=== PATIENT | female | born 1995 | race Caucasian/White ===

== ENCOUNTER 2017-02-03 09:55 | Emergency (ER) | payer OTHER | END 2017-02-03 11:25 | disposition home or self-care (01) | LOC: ER1 09:55 | DX: R05 Cough (principal); J34.89 Other specified disorders of nose and nasal sinuses; R11.0 Nausea; R09.89 Other specified symptoms and signs involving the circulatory and respiratory systems | CPT/HCPCS: 99283 ==

== ENCOUNTER 2021-06-25 10:58 | Emergency (ER) | payer OTHER ==
[~2021-06-25 10:58] MED LIST: BENTYL 10MG CAP10 MG PO; TYLENOL 500 MG500 MG PO; ZOFRAN4 MG PO
== END 2021-06-25 11:53 | disposition left against medical advice (07) ==
LOC: ER1 10:58
DX: Z53.21 Procedure and treatment not carried out due to patient leaving prior to being seen by health care provider (principal)